=== PATIENT | male | born 1990 | race Caucasian/White ===

== ENCOUNTER 2019-02-16 12:16 | Emergency (ER) | payer OTHER ==
[~2019-02-16] VITALS: Ht 182.9 cm; Wt 95.5 kg
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
--- NOTE | 2019-02-16 13:45 | Diagnostic Imaging Report ---
EXAMINATION: Right shoulder at 1:35 PM. INDICATION: Fell, shoulder pain. Three views were obtained. COMPARISON: There are no prior studies available for comparison. FINDINGS: There is no fracture, dislocation or acute bony abnormality evident. The shoulder joint is well maintained. The soft tissues are unremarkable. IMPRESSION: There is no evidence for an acute bony abnormality. Dictated by: Dictated on workstation # [id number]
[2019-02-16 14:29] VITALS: BP 125/86
== END 2019-02-16 14:30 | disposition home or self-care (01) ==
LOC: ER 12:18
DX: S40.211A Abrasion of right shoulder, initial encounter (principal); Z87.828 Personal history of other (healed) physical injury and trauma; Z87.81 Personal history of (healed) traumatic fracture; W19.XXXA Unspecified fall, initial encounter
CPT/HCPCS: 73030